=== PATIENT | female | born 1990 ===

== ENCOUNTER 2018-05-11 02:16 | Emergency (ER) | payer MEDICAID ==
[2018-05-11 02:47] VITALS: BMI 26.8
[2018-05-11] MEDS ORDERED: Lactated Ringer's 1,000 ML IV SCH (03:15)
[2018-05-11 07:15] LABS: SQUAMOUS EPITHIAL 2 /hpf (0-5); URINE AMORPHOUS SEDIMENT RARE /ul (<OCC); URINE BACTERIA OCC (<OCC); URINE BILIRUBIN NEGATIVE (NEGATIVE); URINE BLOOD NEGATIVE (NEGATIVE); URINE CLARITY SLIGHTY-CLOUDY (Clear); URINE COLOR YELLOW (YELLOW); URINE GLUCOSE (UA) NEG (NEGATIVE); URINE LEUKOCYTE ESTERASE LARGE Leu/uL (Negative); URINE PROTEIN NEGATIVE (NEGATIVE); URINE UROBILINOGEN 0.2-1.0 mg/dL (0.2-1.0)
--- NOTE | 2018-05-11 09:24 | OBDCSUM ---
Datetime: 05/11/2018 04:32 Discharged to, Provider: Home Follow up at, Provider: [facility] Disch Instr Activity: Normal activity Disch Instr Diet: Regular Discharge Diagnosis, Provider: False Labor - Undelivered Discharge Time: 05/11/2018 04:30 Follow up in weeks, Provider: scheduled appointment today at 1000 Disch Referrals: None
--- NOTE | 2018-05-11 09:24 | OBHP ---
Datetime: 05/11/2018 03:21 IP Adm Impression: Term, intrauterine ; No Active Labor; Intact Membranes IP Admit Plan: Observation/Evaluation Admit Comment, IP Provider: 27-year-old at 37.5 (dated by LMP) presents from [facility] for abdominal cramps and one episode of vomiting 4 hours prior to presentation. She denies na usea, headache, change in vision, painful regular contractions, vaginal bleeding, gush of fluid from vagina, recent sexual intercourse and any urinary symptoms. Reports good movement. At [facility] CBC, CMP and Lipase were drawn - all WNL. Vitally stable. As per patient next appointment with OBGY N scheduled for tomorrow, 05/12. ROS: all other systems reviewed and negative unless noted in HPI. PMD: [facility]; Dr. Jessica Patterson OBHx: x3, C/S x1 (2013). All delivered in DR. LORENZANA x3. care initiated at 28.5 weeks PMH: denies Meds: Ferrous Sulfate 325 mg BID Allergies: NKDA Surg Hx: C/S 2013, D_C x3 Family Hx: denies Labs: GBS positive, O+ antibody neg, Rubella immune, GC/CL neg, HIV neg, Hep neg, RPR neg PE: Vitally stable Gen: no acute distress, comfortable Neuro: A_O x3 Resp: no respiratory distress CV: S1, S2 Extremities: no edema, no tenderness to palpation SVE: 2/0/-3. No external lesions noted. No vaginal bleeding or malodorous discharge noted on exam. Assessment: 27-year-old at 37.5 (dated by LMP) presents for abdominal cramps and one episo de of vomiting 4 hours prior to presentation. Plan: - Observation - Urinalysis - IVF: 1L LR bolus - If NST reactive patient cleared for discharge to home - Recommend to follow-up with scheduled appt at [facility] (tomorrow, 05/12 as per patient) - ED precautions given OB Hospitalist on-call. with PGY1, I saw and examiend this pt. SV ext os 2cm...internal os close d. Occ CTX. Not in active labor. pt feels comfortable. Labor instructions given. MAHNDO Pelvic Type - PN: Adequate Extremities - PN: Normal Abdomen - PN: Normal Back - PN: Normal Breast - PN: Not Done Lungs - PN: Normal Heart - PN: Normal Thyroid - PN: Not Done Neurologic - PN: Not Done HEENT - PN: Normal General - PN: Normal IP Hx Assessment: The History has been Reviewed and is Current EGA AdmitDate IP: 37.5 Vital Signs Provider: Reviewed; Within Normal Limits IP Chief Complaint: Maternal discomfort NICHD Variability Prov Fetus A: Moderate 6-25bpm NICHD Accel Fetus A IP Provider: [id number] FHR Category Provider Fetus A: Category I NICHD Decel Fetus A IP Provider: None Dilatation, Provider: 2 Effacement, Provider: 0 Station, Provider: -3 Genitourinary Exam: Normal DTRs - PN: Not Done
[2018-05-11 10:38] VITALS: BP 107/66; PULSE 102; RESP 16; TEMP 97.9; O2SAT 100
== END 2018-05-11 06:11 | disposition home or self-care (01) ==
LOC: H.EROB2 02:16
DX: O47.1 False labor at or after 37 completed weeks of gestation (principal); O26.93 Pregnancy related conditions, unspecified, third trimester; R10.2 Pelvic and perineal pain; O21.0 Mild hyperemesis gravidarum; Z3A.37 37 weeks gestation of pregnancy; O09.33 Supervision of pregnancy with insufficient antenatal care, third trimester
CPT/HCPCS: 81003; 99284; J7120